=== PATIENT | female | born 1980 | race Caucasian/White ===

== ENCOUNTER 2018-04-17 08:45 | Emergency (ER) | payer OTHER ==
[~2018-04-17] VITALS: Ht 167.6 cm; Wt 67.1 kg
[~2018-04-17 08:45] MED LIST: ACID CONTROL150 MG PO; BACTRIM DS TAB1 EACH PO; CIPRO500 MG PO; CITRATE OF MAG296 ML PO; COLACE 100 MG100 MG PO; MEDROLDOSEPACK PO; NAPROSYN500 MG PO; NOHOMEMEDICATIONS; NORCO 5-325 TA1 EACH PO; PEPCID20 MG PO; PHENERGAN 25 MG25 M1 PO; ULTRAM 50MG TAB50 MG PO
[2018-04-17 09:10] LABS: URINE BILIRUBIN NEGATIVE (Negative); URINE BLOOD 3+ (Negative); URINE CLARITY CLEAR; URINE COLOR YELLOW; URINE GLUCOSE-RANDOM* NEGATIVE (Negative); URINE KETONES NEGATIVE (Negative); URINE PROTEIN (DIPSTICK) NEGATIVE (Negative); URINE SPECIFIC GRAVITY 1.015 (1.005-1.035); URINE UROBILINOGEN 0.2 E.U./dl (0.2-1.0)
[2018-04-17 09:13] LABS: URINE LEUKOCYTES-REFLEX 1+ (Negative); URINE NITRITE-REFLEX POSITIVE (Negative)
[2018-04-17 09:28] LABS: CASTS None Seen /LPF (None Seen); CRYSTALS None Seen /LPF (None Seen); SQUAMOUS >10 Many /LPF (0-3)
[2018-04-17 09:29] LABS: URINE RBC >20 Many /HPF (0-2); URINE WBC-REFLEX 6-15 Few /HPF (0-5)
[2018-04-17 09:42] LABS: ABSOLUTE NEUTROPHILS 3.9 thou/uL (1.4-8.2); BASOPHILS 0.7 % (0.0-2.0); EOSINOPHILS 1.7 % (0.0-3.0); HEMATOCRIT 31.4 % (37.0-47.0); HEMOGLOBIN 10.5 gm/dL (12.0-15.0); LYMPHOCYTES 30.4 % (24.0-44.0); MCH 24.5 pg (26.0-34.0); MCHC 33.5 g/dL (28.0-37.0); MONOCYTES 6.1 % (1.0-8.0); PLATELET COUNT 340 thou/uL (150-400); POLYS 61.1 % (36.0-66.0); RDW 17.7 % (10.5-14.5); WBC 6.3 thou/uL (4.0-11.0)
[2018-04-17 09:59] LABS: POTASSIUM 4.1 mmol/L (3.5-5.1)
[2018-04-17 10:39] LABS: CREATININE 0.7 mg/dL (0.6-1.0); TOTAL BILIRUBIN 0.1 mg/dL (<0.1-1.0)
[2018-04-17 10:40] LABS: ALBUMIN 3.7 g/dL (3.4-5.0); TOTAL PROTEIN 6.8 g/dL (6.4-8.2)
[2018-04-17] MEDS ORDERED: ZOFRAN ODT4 MG PO (10:56)
[2018-04-17] MEDS ORDERED: MACROBID 100 M100 M1 PO (10:56)
[2018-04-17 11:33] VITALS: BP 130/73
== END 2018-04-17 11:34 | disposition home or self-care (01) ==
LOC: ER 08:45
PROVIDERS: Physician Assistant
DX: N39.0 Urinary tract infection, site not specified (principal); M79.10 Myalgia, unspecified site; Z98.890 Other specified postprocedural states

== ENCOUNTER 2018-09-07 19:24 | Emergency (ER) | payer OTHER ==
[~2018-09-07] VITALS: Ht 154.9 cm; Wt 79.4 kg
[~2018-09-07 19:24] MED LIST changes: +MACROBID 100 M100 M1 PO; +ZOFRAN ODT4 MG PO
[2018-09-07 20:01] LABS: URINE BILIRUBIN NEGATIVE (Negative); URINE BLOOD TRACE (Negative); URINE CLARITY CLEAR; URINE COLOR YELLOW; URINE GLUCOSE-RANDOM* NEGATIVE (Negative); URINE KETONES NEGATIVE (Negative); URINE LEUKOCYTES NEGATIVE (Negative); URINE NITRITE NEGATIVE (Negative); URINE PROTEIN (DIPSTICK) NEGATIVE (Negative); URINE SPECIFIC GRAVITY >= 1.030 (1.005-1.035); URINE UROBILINOGEN 0.2 E.U./dl (0.2-1.0)
[2018-09-07 20:11] LABS: BASOPHILS 0.6 % (0.0-2.0); EOSINOPHILS 2.3 % (0.0-3.0); HEMATOCRIT 29.6 % (37.0-47.0); HEMOGLOBIN 9.5 gm/dL (12.0-15.0); LYMPHOCYTES 12.2 % (24.0-44.0); MCH 23.6 pg (26.0-34.0); MCHC 32.1 g/dL (28.0-37.0); MCV 73.5 fL (80.0-100.0); PLATELET COUNT 376 thou/uL (150-400); POLYS 76.9 % (36.0-66.0); RBC 4.03 mil/uL (4.20-5.00); RDW 18.1 % (10.5-14.5); WBC 9.1 thou/uL (4.0-11.0)
[2018-09-07 20:19] LABS: ANION GAP 12 mmol/L (7-16); BUN 11 mg/dL (7-18); CALCIUM 8.6 mg/dL (8.5-10.1); CHLORIDE 104 mmol/L (98-107); CO2 24 mmol/L (21-32); CREATININE 0.8 mg/dL (0.6-1.0); GLUCOSE 110 mg/dL (74-106); POTASSIUM 3.8 mmol/L (3.5-5.1); SODIUM 140 mmol/L (136-145)
[2018-09-07 20:29] LABS: ALBUMIN 3.7 g/dL (3.4-5.0); SGOT 14 U/L (15-37); SGPT 20 U/L (30-65); TOTAL BILIRUBIN 0.2 mg/dL (<0.1-1.0); TOTAL PROTEIN 7.2 g/dL (6.4-8.2); TROPONIN-I <0.06 ng/mL (<0.06)
[2018-09-07] MEDS ORDERED: VENTOLIN HFA 1818 GM INH (20:42)
[2018-09-07 21:54] VITALS: BP 134/85
== END 2018-09-07 21:54 | disposition home or self-care (01) ==
LOC: ER 19:24
PROVIDERS: Emergency Medicine
DX: J70.5 Respiratory conditions due to smoke inhalation (principal); D64.9 Anemia, unspecified; R06.02 Shortness of breath; Z98.890 Other specified postprocedural states

== ENCOUNTER 2019-08-19 14:57 | Emergency (ER) | payer OTHER ==
[~2019-08-19] VITALS: Ht 154.9 cm; Wt 76.2 kg
[~2019-08-19 14:57] MED LIST changes: +VENTOLIN HFA 1818 GM INH
[2019-08-19 15:10] VITALS: BP 148/107
[2019-08-19 15:29] LABS: URINE BILIRUBIN NEGATIVE (Negative); URINE BLOOD 3+ (Negative); URINE CLARITY CLEAR; URINE COLOR YELLOW; URINE GLUCOSE-RANDOM* NEGATIVE (Negative); URINE KETONES NEGATIVE (Negative); URINE PROTEIN (DIPSTICK) 1+ (Negative); URINE SPECIFIC GRAVITY 1.015 (1.005-1.035); URINE UROBILINOGEN 0.2 E.U./dl (0.2-1.0)
[2019-08-19 15:31] LABS: URINE LEUKOCYTES-REFLEX 3+ (Negative); URINE NITRITE-REFLEX POSITIVE (Negative)
[2019-08-19 15:40] LABS: CASTS None Seen /LPF (None Seen); CRYSTALS None Seen /LPF (None Seen); SQUAMOUS >10 Many /LPF (0-3); URINE RBC >20 Many /HPF (0-2); URINE WBC-REFLEX >25 Many /HPF (0-5)
[2019-08-19] MEDS ORDERED: KEFLEX500 M1 PO (16:11)
== END 2019-08-19 16:22 | disposition home or self-care (01) ==
LOC: ER 14:57
PROVIDERS: Emergency Medicine
DX: N39.0 Urinary tract infection, site not specified (principal); R10.2 Pelvic and perineal pain; Z98.51 Tubal ligation status; Z79.899 Other long term (current) drug therapy; Z79.2 Long term (current) use of antibiotics

== ENCOUNTER 2021-03-25 21:20 | Emergency (ER) | payer OTHER ==
[~2021-03-25] VITALS: Ht 154.9 cm; Wt 79.4 kg
[~2021-03-25 21:20] MED LIST changes: +KEFLEX500 M1 PO
[2021-03-25 22:20] LABS: ABSOLUTE NEUTROPHILS 5.1 thou/uL (1.4-8.2); BASOPHILS 0.6 % (0.0-2.0); EOSINOPHILS 0.2 % (0.0-3.0); HEMATOCRIT 39.4 % (37.0-47.0); HEMOGLOBIN 13.5 gm/dL (12.0-15.0); LYMPHOCYTES 15.3 % (24.0-44.0); MCH 32.1 pg (26.0-34.0); MCHC 34.3 g/dL (28.0-37.0); MCV 93.7 fL (80.0-100.0); MONOCYTES 4.3 % (1.0-8.0); PLATELET COUNT 144 thou/uL (150-400); POLYS 79.6 % (36.0-66.0); RBC 4.21 mil/uL (4.20-5.00); RDW 12.1 % (10.5-14.5); WBC 7.1 thou/uL (4.0-11.0)
[2021-03-25 22:28] LABS: CALCIUM 8.1 mg/dL (8.5-10.1); CREATININE 0.7 mg/dL (0.6-1.0)
[2021-03-25 22:34] LABS: ALBUMIN 3.3 g/dL (3.4-5.0); TOTAL BILIRUBIN 0.6 mg/dL (0.2-1.0)
[2021-03-25 22:47] LABS: URINE BILIRUBIN NEGATIVE (Negative); URINE BLOOD NEGATIVE (Negative); URINE CLARITY CLEAR; URINE COLOR YELLOW; URINE GLUCOSE-RANDOM* NEGATIVE (Negative); URINE KETONES NEGATIVE (Negative); URINE LEUKOCYTES-REFLEX NEGATIVE (Negative); URINE NITRITE-REFLEX NEGATIVE (Negative); URINE PROTEIN (DIPSTICK) NEGATIVE (Negative)
[2021-03-25 23:45] VITALS: BP 127/71
--- NOTE | 2021-03-26 07:11 | EKG ---
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
== END 2021-03-25 23:45 | disposition home or self-care (01) ==
LOC: ER 21:20
PROVIDERS: Physician Assistant
DX: U07.1 COVID-19 (principal); J12.82 Pneumonia due to coronavirus disease 2019; Z90.710 Acquired absence of both cervix and uterus; Z98.890 Other specified postprocedural states; Z79.51 Long term (current) use of inhaled steroids; Z79.891 Long term (current) use of opiate analgesic; Z79.899 Other long term (current) drug therapy

== ENCOUNTER 2021-03-27 13:04 | Inpatient (IN) | payer OTHER ==
[~2021-03-27] VITALS: Ht 160 cm; Wt 76.7 kg
--- NOTE | ~2021-03-27 | EMS ---
[address] [address] EMS Patient Care Report Name: MESSI CHRISTINE Room #: 355-P ADM IN M.R.#: [id number] Admission: 03/27/21 Attend Phys: Kwaebna Peterson MD Discharge: Date of : 76 Report #: [id number] THIS REPORT FOR: //name// Report Transmitted: 04/03/2021 10:14 EMS Care Summary [place], [place]/[facility] Incident [id number] @ 03/27/2021 12:31 Incident Location [address] [place] [address] Patient MESSI CHRISTINE Female, 40 Years 1980 Patient Address [address] [place] [address] Patient History Novel Coronavirus (COVID-19), Patient Allergies No known allergies, Patient Medications Tylenol, Chief Complaint RESP DISTRESS Disposition Transported No Lights/[place] Reason Breathing Problem Transported To [facility] Narrative PT FOUND SITTING ON COUCH IN LIVING ROOM OF HER HOME. P722 ON SCENE. PTS FAMILY ON SCENE STATES THAT PT HAS COVO-19 AND IS HAVING WORSENING RESP DISTRESS. PTS FAMILY STATES THAT PT HAS BEEN TAKING OTC FEVER REDUCERS W/ NO EFFECT. PT IS UNVACCINATED. PT IS ONLY [place]ER[place]IJANI SPEAKING. PTS FAMILY ABLE TO INTERPRET FOR [address] [address] EMS Patient Care Report Name: MESSI CHRISTINE Room #: 355-P ADM IN M.R.#: [id number] Admission: 03/27/21 Attend Phys: Kwabena Peterson MD Discharge: Date of : 76 Report #: [id number] EMS. PT HAS NO VISIBLE TRAUMA. NO CHANGES NOTED ENROUTE. Initial Vitals @12:47P: 99,R: 16,BP: 129/76,Pain: 0/10,GCS: 15,SpO2: 92,Revised Trauma: 12, Assessments @12:40MENTAL:No Abnormalities,SKIN:No Abnormalities,HEENT:Head/Face: No Abnormalities,LUNG SOUNDS:General: No Abnormalities,ABDOMEN:General: No Abnormalities,PELVIS//GI:No Abnormalities,EXTREMITIES:PULSE:NEURO:No Abnormalities, Impression Acute Respiratory Distress (Dyspnea) Procedures @12:40 ALS Assessment Response: UnchangedSucceeded @12:45 Stretcher Response: Unchanged Timeline 12:29,Call Received 12:29,Dispatch Notified 12:31,Dispatched 12:32,En Route 12:39,On Scene 12:40,At Patient 12:40,ALS Assessment,Response: UnchangedSucceeded, 12:45,Stretcher,Response: Unchanged 12:46,Depart Scene 12:47,BP: 129/76 M,PULSE: 99,RR: 16 R,SPO2: 92 Ox,ETCO2: ,BG: ,PAIN: 0,GCS: 15, 12:59,At Destination 13:07,Call Closed Disclaimer v1.1 Copyright 2020 [employer] This EMS Care Summary contains data elements from the applicable legal record (which may be displayed differently). It is designed to provide pertinent information for the following purposes: continuity of care, clinical quality, and state data reporting. The complete legal record is available to ED staff and administrators of the receiving hospital in [employer] Patient Tracker. All data is provided "as is."
[2021-03-27 13:05] VITALS: BP 129/83
[2021-03-27 13:42] LABS: ABSOLUTE NEUTROPHILS 5.3 thou/uL (1.4-8.2); BASOPHILS 0.3 % (0.0-2.0); HEMATOCRIT 36.9 % (37.0-47.0); HEMOGLOBIN 12.5 gm/dL (12.0-15.0); LYMPHOCYTES 12.9 % (24.0-44.0); MCH 31.9 pg (26.0-34.0); MCV 93.7 fL (80.0-100.0); MONOCYTES 2.1 % (1.0-8.0); PLATELET COUNT 154 thou/uL (150-400); POLYS 84.7 % (36.0-66.0); RBC 3.93 mil/uL (4.20-5.00); RDW 12.1 % (10.5-14.5); WBC 6.3 thou/uL (4.0-11.0)
[2021-03-27 13:56] LABS: CALCIUM 7.9 mg/dL (8.5-10.1); CREATININE 0.7 mg/dL (0.6-1.0); POTASSIUM 3.5 mmol/L (3.5-5.1)
--- NOTE | 2021-03-27 14:04 | EKG ---
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1980 Requested By: Giovanna Hong Order Number: [id number] MD: Richmond Pathak Measurements Intervals [place] Rate: 91 P: 24 FL: 161 QRS: 2 QRSD: 97 T: 56 QT: 356 QTc: 439 Interpretive Statements Sinus rhythm RSR' in V1 or V2, right VCD or RVH Compared to ECG 03/25/2021 22:00:33 Right ventricular hypertrophy now present RSR' in V1 or V2 now present Electronically Signed On 03-27-2021 14:04:05 CDT by Richmond Pathak [email or web address] <ELECTRONICALLY SIGNED> By: Richmond Pathak MD, [facility] 03/27/21 1404 1310 09 Richmond Pathak MD, FACC /EPI
[2021-03-27 14:06] LABS: TOTAL BILIRUBIN 0.5 mg/dL (0.2-1.0)
[2021-03-27 17:10] VITALS: BP 108/64
[2021-03-27 18:58] VITALS: BP 129/79
[2021-03-28] VITALS (7 sets, daily range): BP systolic 108–125; BP diastolic 66–81
--- NOTE | 2021-03-28 05:07 | NUR ---
Patient making progress towards outcome goals. Oxygenation optimal with 2L/NC, mainly applied for comfort. IVfluids infusing, vital signs and rhythm stable. Up adlib without difficulty. Romanian speaking, danish limited but enough to communicate needs.
[2021-03-28 06:15] LABS: HEMATOCRIT 36.1 % (37.0-47.0); HEMOGLOBIN 12.2 gm/dL (12.0-15.0); MCH 31.7 pg (26.0-34.0); MCHC 33.9 g/dL (28.0-37.0); MCV 93.6 fL (80.0-100.0); RBC 3.86 mil/uL (4.20-5.00); RDW 12.2 % (10.5-14.5); WBC 6.8 thou/uL (4.0-11.0)
[2021-03-28 06:59] LABS: ALBUMIN 2.7 g/dL (3.4-5.0); CALCIUM 8.1 mg/dL (8.5-10.1); CREATININE 0.7 mg/dL (0.6-1.0); DIRECT BILIRUBIN 0.1 mg/dL (<0.1-0.2); POTASSIUM 4.1 mmol/L (3.5-5.1); TOTAL BILIRUBIN 0.4 mg/dL (0.2-1.0); TOTAL PROTEIN 6.3 g/dL (6.4-8.2)
--- NOTE | 2021-03-28 17:44 | NUR ---
ASSUMED PATIENT CARE AT 0700. A/O X4. INCREASED 02 TO 5L/NC. C/O ABD PAIN. NO VOMIT. UP AD KATHERINE. NOT TOWARDS POC GOALS.
[2021-03-29 04:30] VITALS: BP 117/78
--- NOTE | 2021-03-29 05:02 | HC ---
[facility] [place] [address] CONSULTATION Name: MESSI CHRISTINE Room #: 355-P ADM IN M.R.#: [id number] Admission: 03/27/21 Attend Phys: Kwabena Peterson MD Discharge: Date of : 76 Report #: [id number] THIS REPORT FOR: cc: FAM - No family physician/PCP FAM - No family physician/PCP Marck Gates MD ~ DATE OF SERVICE: 03/28/2021 INFECTIOUS DISEASE CONSULTATION ATTENDING PHYSICIAN: Dr. Peterson. REASON FOR EVALUATION: COVID-19 infection, complicated by pneumonitis and respiratory failure. HISTORY OF PRESENT SUBJECTIVE: Chart reviewed. The patient examined. This is a 40-year-old [place]ese-speaking woman who apparently has a several day history of illness, generalized myalgias, some nausea with emesis and loose stools. Subsequently, developed some dyspnea, cough, fever. She was evaluated in the Emergency Room on 03/25/2021, was confirmed to have a positive COVID test. She returned on 03/27/2021 with lack of resolution of signs and symptoms and perhaps worsening. Evaluation including a chest x-ray noted increasing interstitial opacities. Lactic acid 1.0. CTA chest, PE protocol, no evidence of pulmonary infiltrate, moderate to severe COVID type changes. Blood cultures collected at time of admission are sterile thus far. She had some low-grade temperature elevations as well. She is currently requiring supplemental oxygen 2 L per nasal cannula. She was empirically started on therapy with remdesivir. ALLERGIES: None known. MEDICATIONS: Include zinc, cholecalciferol, thiamine, ascorbic acid, dexamethasone, ____, remdesivir. PAST MEDICAL HISTORY: Previous tubal ligation, x3, hysterectomy. SOCIAL HISTORY: Nonsmoker, occasional ethanol, no illicit drug use. FAMILY HISTORY: Noncontributory. REVIEW OF SYSTEMS: Otherwise, unremarkable 10-point review of systems. PHYSICAL EXAMINATION: GENERAL: Alert, cooperative. She is in moderate distress. Does have some short paroxysms of nonproductive coughing during the visit. VITAL SIGNS: Temperature 98.6, pulse 76, respirations 31, blood pressure is 117/75. [address] [address] CONSULTATION Name: MESSI CHRISTINE Room #: 355-P [facility] IN .R.#: [id number] Admission: 03/27/21 Attend Phys: Kwabena Peterson MD Discharge: Date of : 76 Report #: [id number] SKIN: Warm, dry, no rashes. HEENT: Normocephalic. Extraocular muscles intact. Nasal cannula in place at 2 liters. NECK: Supple. LUNGS: Bilateral few scattered coarse breath sounds posteriorly. HEART: Regular. I do not appreciate a murmur. ABDOMEN: Slightly distended, soft, nontender. EXTREMITIES: No cyanosis. GENITOURINARY AND RECTAL: Deferred. LABORATORY DATA: Blood cultures as described above, sterile thus far. Electrolytes: Sodium 139, potassium 4.1, chloride 105, bicarbonate is 24, anion gap of 10, BUN and creatinine 8 and 0.7, glucose 121, AST 57, ALT of 69, total protein 63, albumin of 2.7, estimated GFR of 92. CBC: White count of 6.8, H and H 12.2 and 36.1, platelets of 188. Procalcitonin 0.08. Most recent lactic acid 1.0. IMAGING: As noted above. ASSESSMENT AND PLAN: COVID-19 infection, complicated by pneumonitis and respiratory failure. We will continue a combination therapy directed against the coronavirus, would add Actemra. At this point, we will hold off on antibacterials and monitor expectantly. Continue supportive care with oxygen therapy, not having significant disease burden, not clear if she is having any specific risk factors for progressive illness. <ELECTRONICALLY SIGNED> By: Marck Gates MD 03/29/21 0502 [phone] Marck Gates MD /nt
--- NOTE | 2021-03-29 06:03 | NUR ---
C/O sore throat due to coughing. Requested cough and sleep med. MANAGER ENDOSCOPY notified and order received. Benadryl , cephacol lonzenges and guiafenessin syrup given with good result. She stated she finally was able to get some sleep. O2 sat in in the low 90's on 5L then RT titrated to 6L with O2 sat in the mid 90's. Shortness of breath with exertion, Cont. on enhanced precaution, afebrile. Making some progress towards care plan goals.
[2021-03-29 06:10] LABS: HEMOGLOBIN 11.9 gm/dL (12.0-15.0); MCH 32.1 pg (26.0-34.0); MCHC 33.9 g/dL (28.0-37.0); MCV 94.5 fL (80.0-100.0); RBC 3.71 mil/uL (4.20-5.00); RDW 12.1 % (10.5-14.5); WBC 9.5 thou/uL (4.0-11.0)
[2021-03-29 06:21] LABS: ALBUMIN 2.5 g/dL (3.4-5.0); ANION GAP 11 mmol/L (7-16); BUN 13 mg/dL (7-18); CALCIUM 8.1 mg/dL (8.5-10.1); CHLORIDE 109 mmol/L (98-107); CO2 23 mmol/L (21-32); CREATININE 0.6 mg/dL (0.6-1.0); DIRECT BILIRUBIN < 0.1 mg/dL (<0.1-0.2); GLUCOSE 96 mg/dL (74-106); PHOSPHORUS 3.3 mg/dL (2.6-4.7); POTASSIUM 3.6 mmol/L (3.5-5.1); SGOT 69 U/L (15-37); SGPT 86 U/L (14-59); SODIUM 143 mmol/L (136-145); TOTAL BILIRUBIN 0.4 mg/dL (0.2-1.0); TOTAL PROTEIN 6.1 g/dL (6.4-8.2)
[2021-03-29 07:59] VITALS: BP 110/69
[2021-03-29 11:24] VITALS: BP 108/70
[2021-03-29 16:41] VITALS: BP 125/84
--- NOTE | 2021-03-29 17:41 | NUR ---
ASSUMED PATIENT CARE AT 0700. A/O X4. TOLERATED ON 6L/NC. DRY COUGH. UP AD KATHERINE. POOR APPETITE. SLOLWY TOWARDS POC GOALS.
[2021-03-29 19:31] VITALS: BP 121/79
[2021-03-30 04:11] VITALS: BP 125/80
[2021-03-30 05:41] LABS: HEMATOCRIT 34.7 % (37.0-47.0); HEMOGLOBIN 11.9 gm/dL (12.0-15.0); MCH 32.4 pg (26.0-34.0); MCHC 34.4 g/dL (28.0-37.0); MCV 94.3 fL (80.0-100.0); RBC 3.68 mil/uL (4.20-5.00); RDW 12.2 % (10.5-14.5); WBC 7.7 thou/uL (4.0-11.0)
--- NOTE | 2021-03-30 05:48 | NUR ---
Pt. requested tylenol for headache , guiafenessin and cephacol lonzenges also given. C/O her chest being sore from coughing. Tylenol helped some. Sleep med also given per her request. She slept fair during the night.Cont. on enhanced precaution, afebrile.
[2021-03-30 06:18] LABS: ALBUMIN 2.4 g/dL (3.4-5.0); CALCIUM 7.9 mg/dL (8.5-10.1); CREATININE 0.6 mg/dL (0.6-1.0); DIRECT BILIRUBIN 0.1 mg/dL (<0.1-0.2); POTASSIUM 3.6 mmol/L (3.5-5.1); TOTAL BILIRUBIN 0.4 mg/dL (0.2-1.0); TOTAL PROTEIN 5.9 g/dL (6.4-8.2)
[2021-03-30 07:32] VITALS: BP 119/76
[2021-03-30 11:28] VITALS: BP 131/86
[2021-03-30 15:24] VITALS: BP 125/77
[2021-03-30 17:06] LABS: HAV IgM AB (ANTI-HAV IgM) Negative (Negative); HEPATITIS B SURFACE AG Negative (Negative)
--- NOTE | 2021-03-30 19:53 | NUR ---
RN ASSUMED PT'S CARE AT 0700-1900PM, PT IS A&OX4, PT NEEDS MORE O2 TODAY, PT IS ON O2 11-12 L/MIN/NC , PT'S O2SAT STAY AT 92-96%, PT HAS SOB WITH ACTIVITIES, PT HAS NEW CONSULT FOR PULMONARY DR. NEW ORDER RECEIVED.
[2021-03-30 21:21] VITALS: BP 142/93
[2021-03-31 03:58] LABS: HEMATOCRIT 36.5 % (37.0-47.0); HEMOGLOBIN 12.6 gm/dL (12.0-15.0); MCH 32.5 pg (26.0-34.0); MCHC 34.6 g/dL (28.0-37.0); MCV 93.9 fL (80.0-100.0); RBC 3.88 mil/uL (4.20-5.00); RDW 12.3 % (10.5-14.5); WBC 10.9 thou/uL (4.0-11.0)
[2021-03-31 04:15] LABS: ALBUMIN 2.5 g/dL (3.4-5.0); ANION GAP 10 mmol/L (7-16); BUN 13 mg/dL (7-18); CALCIUM 8.2 mg/dL (8.5-10.1); CHLORIDE 104 mmol/L (98-107); CO2 25 mmol/L (21-32); CREATININE 0.7 mg/dL (0.6-1.0); DIRECT BILIRUBIN < 0.1 mg/dL (<0.1-0.2); GLUCOSE 118 mg/dL (74-106); PHOSPHORUS 4.4 mg/dL (2.5-4.9); SGOT 43 U/L (15-37); SGPT 64 U/L (30-65); SODIUM 139 mmol/L (136-145); TOTAL BILIRUBIN 0.4 mg/dL (0.2-1.0); TOTAL PROTEIN 6.1 g/dL (6.4-8.2)
[2021-03-31 05:34] VITALS: BP 121/76
--- NOTE | 2021-03-31 06:10 | NUR ---
O2 at 12L/HF with O2 sat in the mid 90's.RT tried Optiflow but pt. unable to tolerate stating pressure is too high in her nose and it hurts. She has maintained her O2 sat in the upper 90's through the night.She does get short of breath with exertion. Requested cough med, tylenol for chest that eun when coughing and sleep med with some help. She stated she slept fair during the night.Cont. on enhanced precaution , afebrile.SCD's in place. Up to commode independently to void.
[2021-03-31 07:40] VITALS: BP 110/70
--- NOTE | 2021-03-31 11:22 | NUR ---
INITIAL ASSESSMENT: DAVID reviewed chart and spoke with nursing and attending physician. Pt was admitted from home due to COVID pneumonia. Pt placed in Enhanced Isolation. Pt has not received a COVID vaccine. Pt is afebrile and requiring 12L of O2. Pt is on IV abx and IV steroids. Pt is on Remdesivir. SW placed call to pt's room. No answer. Per chart, pt is alert/orientated x 4. Pt lives at home with family. Pt does not currently have health insurance. [facility] [employer] to screen pt for [place]-Medicaid. SW is following to assist as needed with discharge planning.
[2021-03-31 11:32] VITALS: BP 116/82
[2021-03-31 16:42] VITALS: BP 122/84
[2021-03-31 18:59] VITALS: BP 116/77
--- NOTE | 2021-03-31 19:33 | NUR ---
RN ASSUMED PT'S CARE AT 0700-1900PM, PT IS A&OX4, PT IS ON HIGH FLOW O2 12L/MIN/NC , PT'S O2SAT STAY AT 92-96%, PT STILL HAS SOB WITH ACTIVITIES, PT IS CONTINUING IV ABX AND TREAT COVID MEDICATIONS. PT'S VS ARE STABLE AT DAY SHIFT.
[2021-04-01 03:53] VITALS: BP 132/87
[2021-04-01 06:15] LABS: HEMATOCRIT 38.4 % (37.0-47.0); HEMOGLOBIN 13.2 gm/dL (12.0-15.0); MCH 32.2 pg (26.0-34.0); MCHC 34.3 g/dL (28.0-37.0); MCV 93.8 fL (80.0-100.0); RBC 4.09 mil/uL (4.20-5.00); RDW 12.1 % (10.5-14.5); WBC 12.7 thou/uL (4.0-11.0)
--- NOTE | 2021-04-01 06:29 | NUR ---
Requested sleep med , benadryl given last night and stated she slept good. Tylenol given for headache this am with some relief. O2 at 12L/HF with O2 sat in the mid 90's. Shortness of breath with exertion. Bed bath given by [employer] this am once she woke up. Up independently with steady gait. Making some progress towards care plan goals.
[2021-04-01 06:41] LABS: ALBUMIN 2.6 g/dL (3.4-5.0); ANION GAP 11 mmol/L (7-16); BUN 14 mg/dL (7-18); CALCIUM 8.2 mg/dL (8.5-10.1); CHLORIDE 104 mmol/L (98-107); CO2 24 mmol/L (21-32); CREATININE 0.7 mg/dL (0.6-1.0); DIRECT BILIRUBIN < 0.1 mg/dL (<0.1-0.2); GLUCOSE 111 mg/dL (74-106); PHOSPHORUS 4.4 mg/dL (2.5-4.9); POTASSIUM 3.9 mmol/L (3.5-5.1); SGOT 17 U/L (15-37); SGPT 46 U/L (30-65); SODIUM 139 mmol/L (136-145); TOTAL BILIRUBIN 0.4 mg/dL (0.2-1.0); TOTAL PROTEIN 6.2 g/dL (6.4-8.2)
[2021-04-01 07:52] VITALS: BP 125/83
[2021-04-01 11:19] VITALS: BP 127/88
[2021-04-01 15:32] VITALS: BP 114/80
[2021-04-01 19:21] VITALS: BP 115/75
--- NOTE | 2021-04-01 19:36 | NUR ---
RN ASSUMED PT'S CARE AT 0700-1900PM, PT IS A&OX4, PT'S IS ON HIGH FLOW O2 10L/MIN/NC, PT'S O2SAT STAY AT 93-98%, PT STILL HAS SOB WITH ACTIVITIES, PT'S VS ARE STABLE AT DAY SHIFT.
--- NOTE | 2021-04-02 04:45 | NUR ---
PT MAKING SLOW PROGRESS TOWARDS GOALS. ON O2 AT 10 PER NC OVERNIGHT. DENIED ANY SOA WHILE AT REST OR WHEN UP TO BSC. STATES SHE HAS OCCASIONAL PRODUCTIVE COUGH. NOTED CRACKLES IN BOTH LOWER LOBES. HEADACHE RELIEVED WITH SINGLE DOSE OF TORADOL.
[2021-04-02 04:55] VITALS: BP 124/78
[2021-04-02 08:06] VITALS: BP 112/75
[2021-04-02 12:37] VITALS: BP 118/68
[2021-04-02 16:42] VITALS: BP 114/67
--- NOTE | 2021-04-02 17:44 | NUR ---
assumed care of pt at 0700. pt aox4. weaned to 8L NC. steady gait. vitals stable. good appetite. no other changes to report.
[2021-04-02 19:32] VITALS: BP 113/72
--- NOTE | 2021-04-02 23:17 | NUR ---
PT RESTING IN BED WATCHING TV. OPTI SEVERO INTACT, CONTINUOUS PULSE OX INTACT. LUNGS WITH CRACKLES. PT NOT SOA WHEN TALKING, ESTONIAN AND UKRAINIAN SPEAKING. PT REQUESTED SNACK AND PRN FOR SLEEP. PT STATED SHE WILL CALL FOR ASSISTANCE.
[2021-04-03 04:59] VITALS: BP 110/66
[2021-04-03 07:27] VITALS: BP 113/67
--- NOTE | 2021-04-03 09:11 | NUR ---
Nutrition: pt seen for LOS. Admit with COVID PNA. Pt reports good appetite, eats 50-100% of meals on regular diet. No food preferences voiced. No weight changes. On steroid, vitamin pack. BG 92-191. No hx of DM. BM 04/01. May need to consider carb controlled diet order if BG consistently running elevated. Otherwise low nutrition risk.
[2021-04-03 11:34] VITALS: BP 104/66
--- NOTE | 2021-04-03 13:53 | NUR ---
DAVID reviewed chart and spoke with nursing and attending physician. Pt remains in Enhanced Isolation due to COVID. Pt is afebrile and on 8L of O2. Pt is on IV abx and IV steroids. No weekend discharge planned. [employer] is working with pt on [place]Med[place] application. Plan is for pt to discharge home when medically stable. DAVID spoke with pt via phone. Introduced role of SW. Pt is alert/orientated x 4. Pt states she lives at home with her family. SW explained that O2 needs will need to be lower prior to discharging home. SW also discussed that if home O2 is needed, [facility] home O2 is an option, due to pt's dx of COVID. Pt verbalized understanding. SW faxed pt's face sheet to [facility] for review. Will need rest/exercise oximetry and script for home O2. Pt states she has ppwk for [employer]. SW notified [employer]. SW is following to assist as needed with discharge planning
[2021-04-03 15:39] VITALS: BP 100/67
--- NOTE | 2021-04-03 18:02 | NUR ---
assumed care of pt at 0700. weaned to 4L NC. continues to feel better. vitals stable. no other changes to report. good progress toward poc goals.
[2021-04-03 19:50] VITALS: BP 109/66
--- NOTE | 2021-04-03 19:50 | NUR ---
PT SHOWED NURSE BLOODY SPUTUM, HUMIDIFIER REFILLED ON O2.
[2021-04-03 19:57] VITALS: BP 102/66
[2021-04-04 04:21] VITALS: BP 121/78
--- NOTE | 2021-04-04 04:25 | NUR ---
PT WATCHING TV IN BED, NC 4L, LUNGS WITH CRACKLES. PT VERBALIZED SHE WOULD CALL FOR ASSISTANCE. PT PROVIDED PRN FOR SLEEP SHE REQUESTED.
--- NOTE | 2021-04-04 04:47 | NUR ---
PT EDUCATED NOT TO REMOVE NC TO WALK TO TOILET. PT ENCOUARGED TO USE BSC, UNTIL O2 TUBING IS LONGER. PT AGREED.
[2021-04-04 05:38] LABS: HEMATOCRIT 38.3 % (37.0-47.0); HEMOGLOBIN 12.9 gm/dL (12.0-15.0); MCH 31.6 pg (26.0-34.0); MCHC 33.7 g/dL (28.0-37.0); MCV 93.9 fL (80.0-100.0); RBC 4.08 mil/uL (4.20-5.00); RDW 12.3 % (10.5-14.5); WBC 18.8 thou/uL (4.0-11.0)
[2021-04-04 05:52] LABS: ANION GAP 11 mmol/L (7-16); BUN 15 mg/dL (7-18); CALCIUM 8.4 mg/dL (8.5-10.1); CHLORIDE 102 mmol/L (98-107); CO2 25 mmol/L (21-32); CREATININE 0.7 mg/dL (0.6-1.0); GLUCOSE 131 mg/dL (74-106); MAGNESIUM 2.3 mg/dL (1.8-2.4); POTASSIUM 3.8 mmol/L (3.5-5.1); SODIUM 138 mmol/L (136-145)
[2021-04-04 08:06] VITALS: BP 107/73
[2021-04-04 09:45] LABS: HEPATITIS C VIRUS AB <0.1
[2021-04-04 11:36] VITALS: BP 105/67
[2021-04-04 15:41] VITALS: BP 104/60
--- NOTE | 2021-04-04 16:21 | NUR ---
RN ASSUMED PT'S CARE AT 0700AM, PT IS A&O X4, PT'S O2 HAS REDUCED TO 4L/MIN/NC FROM 6L/MIN/NC, PT'S O2SAT STAY AT 92-96% AT MOST OF TIME, PT STILL HAS SOB WITH ACTIVITIES, PT GETS UP TO BSC WITHOUT ASSIST, PT DENIES PAIN AND N/V BY THIS TIME.
[2021-04-04 20:49] VITALS: BP 106/69
--- NOTE | 2021-04-04 23:22 | NUR ---
PT PROGRESSING TOWARDS D/C GOALS. VSS AFEBRILE. SATS WNL ON 4LNC. BS DIMINISHED AT BASES. NO C/O PAIN. NPC NOTED. BED DOWN. CALL LIGHT IN REACH. WILL CONTINUE TO MONITOR PT FOR CHANGES.
[2021-04-05 04:14] VITALS: BP 114/66
--- NOTE | 2021-04-05 04:51 | NUR ---
PT ALERT AND ORIENTED X4. UNDERSTANDS SOME CHINESE. VSS AFEBRILE. SAT WNL ON 4LNC. PT IS RESTING . NO C/O PAIN. NO C/O SOA.
[2021-04-05 07:18] VITALS: BP 115/70
[2021-04-05 12:13] VITALS: BP 99/63
[2021-04-05 15:47] VITALS: BP 100/58
--- NOTE | 2021-04-05 18:36 | NUR ---
RN ASSUMED PT'S CARE AT 0700AM, PT IS A7OX4, PT IS OFF O2 AND SHE IS ON ROOM AIR, PT'S O2SAT STAY AT 93-96%, PT DENIES SOB AND PAIN AT THIS TIME, PT'S VS ARE STABLE AT DAY SHIFT .
[2021-04-05 20:30] VITALS: BP 118/73
--- NOTE | 2021-04-06 02:49 | NUR ---
PT PROGRESSING WELL TOWARDS D/C GOALS. VSS AFEBRILE. SATS WNL ON RA. NO C/O SOA OR PAIN TONIGHT.
[2021-04-06 05:00] VITALS: BP 111/64
--- NOTE | 2021-04-06 06:18 | NUR ---
PT PROGRESSING TOWARDS D/C GOALS. VSS AFEBRILE. NO S/S DISRESS. UNLABORED ON RA.
[2021-04-06 07:09] VITALS: BP 116/80
[2021-04-06 11:28] VITALS: BP 114/69
[2021-04-06] MEDS ORDERED: MUCINEX600 MG PO (13:56)
[2021-04-06] MEDS ORDERED: VITAMIN D325 MC2 PO (13:56)
[2021-04-06] MEDS ORDERED: VITAMIN B-1100 M2 PO (13:56)
[2021-04-06] MEDS ORDERED: ZINC SULFATE50 MG PO (13:56)
[2021-04-06] MEDS ORDERED: ASPIRIN EC81 M1 PO (13:57)
[2021-04-06] MEDS ORDERED: PREDNISONE 10 M10 M1 PO (13:57)
[2021-04-06 14:15] VITALS: BP 114/69
--- NOTE | 2021-04-06 14:16 | NUR ---
DISCHARGE NOTE: DAVID reviewed chart and spoke with nursing and attending physician. Pt remains in Enhanced Isolation due to COVID. Pt is afebrile and on room air. Pt is medically stable for discharge home today. New prescriptions to be vouched for at [facility] pharmacy. [employer] is working with pt on a Medicaid application. DAVID spoke with pt via phone to discuss discharge plan. Pt is aware and in agreement with plan. Pt states her family will be able to provide transportation home. [facility] list to be provided to pt to establish primary care. DAVID faxed face sheet to [facility] pharmacy. Spoke with Kendra in the outpt pharmacy, who will call 3W when meds are ready to be picked up. No additional SW needs identified at this time. DAVID is available to assist should needs arise.
[2021-04-06 15:46] VITALS: BP 114/69
--- NOTE | 2021-04-06 16:01 | NUR ---
CARE ASSUMED THIS AM, PT ALERT AND ORIENTED X4, DENIES ANY PAIN, NAUSEA AND VOMITTING. ON ROOM AIR WITH EXERCISE SATURATION. PT OUTPT PRESCRIOTION MEDS PACKED AND WITH PT. WENT THROUGH MED S INFO WITH PT. AWARE OF DISCHARGE INSTRUCTIONS. IV AND TELE D/C. ALL BELONGINGS WITH PT. PT TAKNE DOWN VIA WHEELCHAIR.
== END 2021-04-06 15:58 | disposition home or self-care (01) | DRG 177 ==
LOC: ER 13:04 → 3W 16:56 → EROBS 16:56 → 3W 17:44
PROVIDERS: Internal Medicine; Nurse Practitioner Family; Specialist; ADMIT Hospitalist; ATTEND Hospitalist
PROC: XW033E5 Introduction of Remdesivir Anti-infective into Peripheral Vein, Percutaneous Approach, New Technology Group 5 (ICD-10-PCS; principal; 2021-03-27)
PROC: XW033H5 Introduction of Tocilizumab into Peripheral Vein, Percutaneous Approach, New Technology Group 5 (ICD-10-PCS; 2021-03-28)
PROC: 5A0945A Assistance with Respiratory Ventilation, 24-96 Consecutive Hours, High Flow/Velocity Cannula (ICD-10-PCS; 2021-03-30)
DX: U07.1 COVID-19 (principal); J96.01 Acute respiratory failure with hypoxia; J12.82 Pneumonia due to coronavirus disease 2019; D72.829 Elevated white blood cell count, unspecified; Z90.710 Acquired absence of both cervix and uterus; Z98.891 History of uterine scar from previous surgery; Z79.899 Other long term (current) drug therapy
CPT/HCPCS: 10879

== ENCOUNTER 2021-05-20 15:12 | Emergency (ER) | payer OTHER ==
[~2021-05-20] VITALS: Ht 154.9 cm; Wt 74.8 kg
[~2021-05-20 15:12] MED LIST changes: +ASPIRIN EC81 M1 PO; +MUCINEX600 MG PO; +PREDNISONE 10 M10 M1 PO; +VITAMIN B-1100 M2 PO; +VITAMIN D325 MC2 PO; +ZINC SULFATE50 MG PO
[2021-05-20] MEDS ORDERED: PERCOCET 10-321 EAC1 PO (19:33)
[2021-05-20] MEDS ORDERED: NORCO5 PO (20:07)
[2021-05-20 20:58] VITALS: BP 166/88
== END 2021-05-20 21:00 | disposition home or self-care (01) ==
LOC: ER 15:12
DX: S52.502A Unspecified fracture of the lower end of left radius, initial encounter for closed fracture (principal); Z98.51 Tubal ligation status; Z98.890 Other specified postprocedural states; Z90.710 Acquired absence of both cervix and uterus; Z79.51 Long term (current) use of inhaled steroids; Z79.82 Long term (current) use of aspirin; Z79.891 Long term (current) use of opiate analgesic; Z79.899 Other long term (current) drug therapy; X58.XXXA Exposure to other specified factors, initial encounter; Y93.89 Activity, other specified; Y92.89 Other specified places as the place of occurrence of the external cause; Y99.8 Other external cause status